=== PATIENT | female | born 1950 | race Caucasian/White ===

== ENCOUNTER 2020-02-18 12:38 | Outpatient (CLI) | payer MEDICARE, OTHER ==
[2020-02-18 13:29] LABS: CREATININE 0.95 mg/dL (0.55-1.02)
[2020-02-18] MEDS ORDERED: OMNIPAQUE 350 MG/ML, 100ML BOTTLE ONE (14:06)
== END 2020-02-18 23:59 | disposition home or self-care (01) ==
LOC: RAD 12:38
PROVIDERS: ATTEND Nurse Practitioner
DX: I26.09 Other pulmonary embolism with acute cor pulmonale (principal)
CPT/HCPCS: 36415; 71275; 82565; Q9967

== ENCOUNTER 2020-02-18 14:30 | Emergency (ER) | payer MEDICARE, OTHER ==
[~2020-02-18] VITALS: Ht 167.6 cm; Wt 67.0 kg
[2020-02-18] MEDS ORDERED: APIXABAN 5 MG TABLET ONE (15:29)
[2020-02-18 15:34] VITALS: BP 122/70
--- NOTE | 2020-02-18 15:37 | NUR ---
PT MEDICATED PER MAR, PT DISCONECCTED FROM MONITOR AND AMBULATED TO BATHROOM
[2020-02-18] MEDS ORDERED: APIXABAN 5 MG TABLET PO ONE (16:00)
== END 2020-02-18 15:46 | disposition home or self-care (01) ==
LOC: ED 15:40
DX: I26.99 Other pulmonary embolism without acute cor pulmonale (principal); R06.00 Dyspnea, unspecified; R94.31 Abnormal electrocardiogram [ECG] [EKG]
CPT/HCPCS: 93005; 99283